=== PATIENT | male | born 1950 | race Caucasian/White ===

== ENCOUNTER → 2018-10-02 | Outpatient (CLI) | payer BC, MEDICARE | END | disposition home or self-care (01) | LOC: SHCH 11:33 | PROVIDERS: ATTEND Internal Medicine Cardiovascular Disease | DX: I10 Essential (primary) hypertension (principal) | CPT/HCPCS: 93306 ==

== ENCOUNTER 2024-08-15 07:33 | Observation (INO) | payer BC, MEDICARE ==
[2024-08-13 09:29] VITALS: BP 185/88; PULSE 68; RESP 17; TEMP 98.1
[2024-08-13 09:32] LABS: BASOPHILS # (AUTO) 0.05 K/uL (0.00-0.20); BASOPHILS % (AUTO) 0.5 % (0.0-5.0); EOSINOPHILS # (AUTO) 0.17 K/uL (0.00-0.70); EOSINOPHILS % (AUTO) 1.8 % (0.0-8.0); HEMATOCRIT 43.7 % (42-54); IMMATURE GRANULOCYTE ABSOLUTE 0.09 K/uL (0-1); LYMPHOCYTES # (AUTO) 2.2 K/uL (1.0-4.8); LYMPHOCYTES % (AUTO) 23.4 % (21.0-51.0); MEAN CORPUSCULAR HEMOGLOBIN 35.2 pg (27.0-33.0); MEAN CORPUSCULAR HGB CONC 35.7 g/dL (32.0-36.0); MEAN CORPUSCULAR VOLUME 98.6 fL (79-99); MONOCYTES # (AUTO) 0.9 K/uL (0.1-1.0); MONOCYTES % (AUTO) 9.8 % (3.0-13.0); NEUTROPHILS # (AUTO) 5.9 K/uL (1.8-7.7); NEUTROPHILS % (AUTO) 63.5 % (40.0-77.0); PLATELET COUNT (AUTO) 261 K/uL (130-400); RED BLOOD CELL COUNT(AUTO) 4.43 MIL/uL (4.50-6.20); RED CELL DISTRIBUTION WIDTH 12.4 % (11.0-15.5); WHITE BLOOD COUNT (AUTO) 9.4 K/uL (4.8-10.8)
--- NOTE | 2024-08-13 09:38 | EKG ---
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
[2024-08-13 09:41] LABS: ALBUMIN 4.1 g/dL (3.5-5.0); CREATININE 0.9 mg/dL (0.5-1.3); POTASSIUM 4.3 mmol/L (3.5-5.1)
[2024-08-13 09:42] LABS: INR 0.97 (0.85-1.15); PROTHROMBIN TIME 10.3 SEC (9.6-11.6)
[2024-08-13 09:44] LABS: PARTIAL THROMBOPLASTIN TIME 32.3 SEC (26.3-35.5)
--- NOTE | 2024-08-14 16:31 | NUR ---
Discharge Plan This CM called patient to phone #: [phone]. Left message to call CM back at [phone]. Also updated that CM will follow up with patient tomorrow after surgery.
[2024-08-15] VITALS (24 sets, daily range): BP systolic 108–183; BP diastolic 59–84; PULSE 51–83; RESP 15–20; TEMP 97.6–98.6; O2SAT 96–98
[~2024-08-15] VITALS: Ht 182.9 cm; Wt 104.3 kg
[~2024-08-15 07:33] MED LIST: AMLO-257 PO; LOSA1TAB42 PO; super beets PO
[2024-08-15] MEDS ORDERED: ROPivacaine 0.5% 5MG/ML 30ML ONE (10:05)
[2024-08-15] MEDS ORDERED: ketaMINE 50MG/ML SYRINGE 50 MG/ML DISP.SYRIN ONE (10:05)
[2024-08-15] MEDS ORDERED: LIDOCAINE PF 100MG/5ML (2%) SYRINGE 5ML ONE (10:07)
[2024-08-15] MEDS ORDERED: rocuRONium bROMide 10MG/1ML 5ML VL ONE ×2 (10:08→11:02)
[2024-08-15] MEDS ORDERED: FENTanyl CITRate PF 50 MCG/1 ML 2ML VIAL ONE (10:08)
[2024-08-15] MEDS ORDERED: proPOFol 10 MG/ML 20ML VIAL IV ONE (10:08)
[2024-08-15] MEDS: TRANEXAMIC ACID 1000MG/10ML ONE (10:35)
[2024-08-15] MEDS ORDERED: ondanSETRON 4MG INJ ONE (10:36)
[2024-08-15] MEDS ORDERED: dexaMETHasone SOD PHOSPHATE 10MG/ML 1ML VIAL ONE (10:36)
[2024-08-15] MEDS: ceFAZolin SODIUM 2 GM VIAL ONE (10:40)
[2024-08-15] MEDS ORDERED: GLYCOPYRROLATE 0.2 MG/ML 5 ML VIAL ONE (10:50)
[2024-08-15] MEDS ORDERED: NEOSTIGMINE METHYLSULFATE 1MG/ML IV ONE (10:50)
[2024-08-15] MEDS ORDERED: PoTASSium chloRIDE 20MEQ/100ML 100 ML IV PRN (11:00)
[2024-08-15] MEDS ORDERED: DiphenhydrAMINE HCL 50 MG/ML VIAL IVP PRN (11:00)
[2024-08-15] MEDS ORDERED: FERROUS FUMARATE 324 MG TABLET PO PRN (11:00)
[2024-08-15] MEDS ORDERED: PoTASSium chloRIDE 20MEQ ER 20 MEQ ERTAB PO PRN (11:00)
[2024-08-15] MEDS ORDERED: CALCIUM CARB 500MG PO PRN (11:00)
[2024-08-15] MEDS ORDERED: HYDROcodone/APAP 5/325 1 TAB TABLET PO PRN ×2 (11:00→11:30)
[2024-08-15] MEDS ORDERED: ondanSETRON 4MG INJ IVP PRN (11:00)
[2024-08-15] MEDS ORDERED: PoTASSium chl 10% ELIXIR 20MEQ 20 MEQ/15 ML UDCUP PO PRN (11:00)
[2024-08-15] MEDS: ROPivacaine 0.5% 5MG/ML 30ML ONE (11:24)
[2024-08-15] MEDS: ketOROlac 30MG VIAL (30MG/ML) ONE (11:24)
--- NOTE | 2024-08-15 13:03 | DS ---
Discharge Summary Hospital Course Summary: The patient was admitted to the hospital postoperatively on 08/15/2024 after undergoing right total knee arthroplasty. They did well with routine postoperative pain control. They worked well with physical therapy. They developed some acute blood loss anemia but remained asymptomatic. The hospital course was otherwise uncomplicated. They were subsequently able to be discharged on postoperative day [] once discharge arrangements were made with home health physical therapy. Java Developer Consultant(s): None Procedure(s): Right total knee arthroplasty, 08/15/2024 Assessment/Plan: ASSESSMENT: Status post right total knee arthroplasty Acute blood loss anemia PLAN: See discharge instructions Discharge Instructions: Begin working with home health physical therapy. Dressing may be removed 08/17/24 and left open to air. Showers ok allowing soap and water to run over the wound. Pat dry. Do not submerge wound in tub/pool. Do not apply ointments. Do not apply Betadine. Do not apply peroxide. Ice packs to decrease pain/swelling. Prescriptions have been sent to the pharmacy: *Kirwin 5/325mg 1-2 tab every 6 hours as needed for severe pain. (please call for refills) Cyclobenzaprine 5mg 1 tab every 8 hours as needed for muscle spasm pain. Gabapentin 100mg 1 tab every 8 hours (may discontinue if drowsy). Colace 100mg 1 tab orally twice a day as needed for constipation. Aspirin 325mg twice a day for 30 days to prevent blood clots. Call for a follow-up appointment in 2-3 weeks at [facility]. Home Medications: Reported Medications [super beets] No Conflict Check, 1 TAB PO DAILY 08/13/24 Losartan/Hydrochlorothiazide (Losartan-Hctz 100-12.5 mg Tab) 100 Mg-12.5 Mg Tablet, 1 TAB PO DAILY for 30 Days, #30 TAB 0 Refills 08/13/24 Amlodipine Besylate (Amlodipine Besylate) 5 Mg Tablet, 1 TAB PO AM for 30 Days, #30 TAB 0 Refills 08/13/24 JENNY BARNEY MD Aug 15, 2024 13:03
--- NOTE | 2024-08-15 13:13 | OP ---
Operative Note: DATE OF PROCEDURE: 08/15/24 PREOPERATIVE DIAGNOSIS: Right knee osteoarthritis. POSTOPERATIVE DIAGNOSIS: Right knee osteoarthritis. PROCEDURE PERFORMED: Right knee total knee arthroplasty. SURGEON: Francine Paredes MD HOUSE PARENT: Ana Lilia Hein. ANESTHESIA: General with adductor canal block. ANESTHESIA: BARK SPUDDER Angela Boudreaux. ESTIMATED BLOOD LOSS: 50cc. COMPLICATIONS: None. DRAINS: None. SPECIMENS REMOVED: resected bone. Not sent to pathology. IMPLANTS: [employer] Journey II BCS size 7 Oxinium femur, size 6 tibial base plate, 7.5 x 32 mm patella, 10 mm polyethylene STATEMENT OF MEDICAL NECESSITY: The patient is a 74-year-old male who suffers from right knee osteoarthritis failing conservative management. After discussion of the risks, benefits, and alternatives with the patient, they voluntarily agreed to undergo the aforementioned procedure. DESCRIPTION OF PROCEDURE: Patient was properly identified in the preoperative holding area. Surgical site marking was verified and surgery consent reviewed. The patient was then taken to the operating room and placed in supine position on the OR table. After induction of general anesthesia, preoperative antibiotics were given, all bony prominences were well-padded, and a well padded tourniquet was applied but not inflated at this time. The right lower extremity was then prepped and draped in usual sterile fashion. Surgical time out was done verifying correct surgery, side, site, and location to be performed. We then began the procedure by exsanguinating the limb using an Esmarch and inflating the tourniquet to 350 mmHg. At this point, we made an anterior midline incision using a 10 blade, coming down sharply the level of the fascia. Skin flaps were elevated medially and laterally. We then obtained a clean 10 blade and performed a standard medial parapatellar arthrotomy. We excised the infrapatellar fat pad. We performed our soft tissue releases off of the tibia. We transected the ACL and removed the anterior portion of the medial & lateral meniscus. We then brought the knee into hyperflexion with the patella everted. We used our entry reamer to enter the femoral canal. We then placed our intramedullary cutting guide for our distal femoral cutting block. We then performed our distal femoral osteotomy ensuring appropriate rotation and removed the bony wafer. We then removed these pins and block and then used jig 2 to size the distal femur with the after mentioned size found. We then placed our 5-in-1 cutting block in 3 degrees of external rotation and took our 5 cuts ensuring to protect the patellar tendon and the collateral ligaments. We then removed the cutting block and our bony fragments using a curved osteotome. We then placed our PCL retractor subluxating the tibia anteriorly. Using an extra medullary tibial cutting guide, we hung the block for our proximal tibial cut taking 2 mm off the more diseased portion. Prior to pinning this block in place, we ensured appropriate varus/valgus alignment and posterior slope similar to the peoria slope of the patient's knee. We then performed our proximal tibial osteotomy and removed the bony wafer using Bovie electrocautery to release any remaining soft tissue attachments. We then used our tibial sizing paddle and checked once more for varus & valgus alignment and found this to be appropriate. At this point, we pinned our tibial paddle in place. We then removed the PCL retractor and subluxated the tibia posteriorly while we placed our femoral trial component. We then finished preparing the notch with the reamer and box chisel. The notch portion of the trial femoral component was then placed. A posterior stabilized polyethylene, size 9 trial was placed. The knee was then taken through range of motion and found to have stable full range of motion. We then placed a bump under the ankle and everted the patella to perform our freehand cut of the undersurface the patella. We then sized our patella and reamed to the lug holes for this. We placed our trial patellar component and begin to take the knee through range of motion. The patella had significant lateral tracking so lateral release was performed. At this point we began removing our trial components and punched the tibial keel prior to removin g our tibial trial component. Final components were opened and cement was mixed on the back table while we injected local cocktail in the posterior capsule. We then thoroughly irrigated out the bone and dried the bony surfaces. We cemented our tibial component in place ensuring to remove excess cement and placed our trial polyethylene. We then cemented our femoral component in place once again taking time to ensure excess cement was removed leg was brought into full extension to help squeeze the excess cement from around the femoral component. We then brought the knee back in a flexion to remove this portion of the cement at this point we placed the ankle in a bump thoroughly irrigated off the patellar component and cemented our patellar component in standard fashion again removing excess cement. While we waited for the cement to cure, we thoroughly irrigated out the wound with normal saline. Once our cement had cured, we took the knee through a range of motion and found full and stable range of motion. We then elected to use the size 10 polyethylene and removed our trial polyethylene. We impacted our final polyethylene component in place in standard fashion and took the knee through a range of motion check once more. This was satisfactory so we began to repair the arthrotomy using #1 Vicryl in interrupted [id number] fashion. Subcutaneous tissue was repaired using 2-0 Vicryl. Running subcuticular 3-0 Monocryl stitch with Dermabond placed over this for the skin. We then applied a foam barrier dressing and a pressure dressing consisting of 4 x 4's fluffs and an Jerry wrap. The tourniquet was then deflated. Patient was awakened from anesthesia, and they were taken to the recovery room in stable condition. FRANCINE PAREDES MD Aug 15, 2024 13:13
[2024-08-15] MEDS: FENTanyl CITRate PF 50 MCG/1 ML 2ML VIAL ONE ×2 (13:15→13:28)
[2024-08-15] MEDS: ketOROlac 15MG/ML VIAL (15MG/ML) IV SCH (13:33)
[2024-08-15] MEDS: ketOROlac 15MG/ML VIAL (15MG/ML) ONE (13:34)
--- NOTE | 2024-08-15 13:45 | HMCIMG ---
KNEE/PATELLA 1-2VWS RT HISTORY: Post right total knee arthroplasty COMPARISON: None TECHNIQUE: 2 images of right knee were obtained. FINDINGS: Portable right knee arthroplasty changes are seen. Postoperative changes are seen. Cutaneous emphysema is There is no acute displaced fracture or dislocation. Degenerative changes are seen. IMPRESSION: 1. Findings as described above.
[2024-08-15] MEDS: GABApentin 100 MG CAPSULE PO SCH (14:40)
[2024-08-15] MEDS: traMADol HCL 50 MG TABLET ONE (14:41)
[2024-08-15] MEDS: traMADol HCL 50 MG TABLET PO PRN (14:41)
[2024-08-15] MEDS: GABApentin 100 MG CAPSULE ONE ×2 (14:41→16:47)
[2024-08-15] MEDS ORDERED: ceFAZolin SODIUM 2 GM VIAL IVP SCH (16:00)
[2024-08-15] MEDS: LACTATED RINGERS 1000ML 1,000 ML IV ONE (16:25)
--- NOTE | 2024-08-15 16:25 | NUR ---
PATIENT ARRIVED ON UNIT VIA STRETCHER. NO PAIN OR DISTRESS NOTED OR VOICED. WILL CONTINUE TO MONITOR.
[2024-08-15] MEDS: acetaMINOPHEN 100 ML ONE (16:46)
[2024-08-15] MEDS: FAMOTIDINE 20MG VIAL IV ONE (16:47)
[2024-08-15] MEDS: 0.9%NACL 1000ML 1,000 ML IV SCH (17:15)
[2024-08-15] MEDS: ceFAZolin SODIUM 2 GM VIAL IVP SCH (18:40)
[2024-08-15] MEDS: doCUSate SODIUM 100 MG CAP PO SCH (21:00)
[2024-08-16] VITALS: BP 162/81; PULSE 63; RESP 20; TEMP 98.3
[2024-08-16 04:03] LABS: HEMATOCRIT 36.1 % (42-54); MEAN CORPUSCULAR HEMOGLOBIN 34.8 pg (27.0-33.0); MEAN CORPUSCULAR HGB CONC 34.1 g/dL (32.0-36.0); MEAN CORPUSCULAR VOLUME 102.3 fL (79-99); RED BLOOD CELL COUNT(AUTO) 3.53 MIL/uL (4.50-6.20); RED CELL DISTRIBUTION WIDTH 12.6 % (11.0-15.5); WHITE BLOOD COUNT (AUTO) 17.5 K/uL (4.8-10.8)
[2024-08-16 04:14] LABS: CREATININE 1.3 mg/dL (0.5-1.3); POTASSIUM 4.3 mmol/L (3.5-5.1)
[2024-08-16 05:53] VITALS: BP 156/74; PULSE 62; RESP 18; TEMP 98.7
[2024-08-16 08:00] VITALS: BP 150/87; PULSE 76; RESP 18; TEMP 98.5; O2SAT 97
--- NOTE | 2024-08-16 08:07 | PN ---
Ortho postop day one. This morning the patient is awake alert and oriented he is in bed and I have asked him to try to spend the majority of the day out of bed. Reporting adequate pain control. Vital signs have been stable. Afebrile. He is voiding on his own. He is yet to pass gas. Laboratory results reviewed. Noted to have a drop in hemoglobin and hematocrit as expected after total knee arthroplasty patient is currently asymptomatic. Operative findings discussed with the patient. The dressing is intact. Jerry bandage removed Ice is present to operative extremity. Gastrocnemius a soft nontender. Negative Homans. Bilateral SCD sleeves present. Ambulated with therapy yesterday and is pending further physical therapy. Anticipated discharge goal is HH/PT. Assessment: Status post right total knee arthroplasty. Asymptomatic acute postoperative blood loss anemia. Plan: Continue with Dr. Paredes's total knee arthroplasty protocol and discharge planning. Asymptomatic acute postoperative blood loss anemia addressed with the protocol as necessary. Vitals/Labs Vital Signs Date Time Temp Pulse Resp B/P (MAP) Pulse Ox O2 Delivery O2 Flow Rate FiO2 08/16/24 05:53 98.8 62 18 156/74 97 Room Air 0.0 08/15/24 21:05 21 Laboratory Tests 08/16/24 03:41 Medications Current Medications Cefazolin Sodium 2 gm STK-MED ONCE .ROUTE Last administered on 08/15/24at 10:40; Start 08/15/24 at 07:58; Stop 08/15/24 at 07:58; Status DC Lactated Ringer's 1,000 ml @ As Directed STK-MED ONCE IV; Start 08/15/24 at 07:58; Stop 08/15/24 at 07:58; Status DC Tranexamic Acid 1,000 mg STK-MED ONCE .ROUTE Last administered on 08/15/24at 10:35; Start 08/15/24 at 09:48; Stop 08/15/24 at 09:48; Status DC Ketorolac Tromethamine 30 mg STK-MED ONCE .ROUTE Last administered on 08/15/24at 11:24; Start 08/15/24 at 09:48; Stop 08/15/24 at 09:48; Status DC Ropivacaine 150 mg STK-MED ONCE .ROUTE Last administered on 08/15/24at 11:24; Start 08/15/24 at 09:49; Stop 08/15/24 at 09:49; Status DC Gabapentin 100 mg STK-MED ONCE .ROUTE; Start 08/15/24 at 09:56; Stop 08/15/24 at 09:56; Status DC Acetaminophen 100 ml @ As Directed STK-MED ONCE .ROUTE; Start 08/15/24 at 09:56; Stop 08/15/24 at 09:56; Status DC Famotidine 20 mg STK-MED ONCE IV; Start 08/15/24 at 09:56; Stop 08/15/24 at 09:57; Status DC Ropivacaine 150 mg STK-MED ONCE .ROUTE; Start 08/15/24 at 10:05; Stop 08/15/24 at 10:05; Status DC Ketamine HCl 50 mg STK-MED ONCE .ROUTE; Start 08/15/24 at 10:05; Stop 08/15/24 at 10:05; Status DC Lidocaine HCl 100 mg STK-MED ONCE .ROUTE; Start 08/15/24 at 10:07; Stop 08/15/24 at 10:08; Status DC Propofol 200 mg STK-MED ONCE IV; Start 08/15/24 at 10:08; Stop 08/15/24 at 10:08; Status DC Rocuronium [place] 50 mg STK-MED ONCE .ROUTE; Start 08/15/24 at 10:08; Stop 08/15/24 at 10:08; Status DC Fentanyl Citrate 100 mcg STK-MED ONCE .ROUTE; Start 08/15/24 at 10:08; Stop 08/15/24 at 10:09; Status DC Ondansetron HCl 4 mg STK-MED ONCE .ROUTE; Start 08/15/24 at 10:36; Stop 08/15/24 at 10:36; Status DC Dexamethasone Sodium Phosphate 10 mg STK-MED ONCE .ROUTE; Start 08/15/24 at 10:36; Stop 08/15/24 at 10:36; Status DC Glycopyrrolate 1 mg STK-MED ONCE .ROUTE; Start 08/15/24 at 10:50; Stop 08/15/24 at 10:50; Status DC Neostigmine Methylsulfate 10 mg STK-MED ONCE IV; Start 08/15/24 at 10:50; Stop 08/15/24 at 10:50; Status DC Sodium Chloride 1,000 ml @ 100 mls/hr Q10H IV Last administered on 08/16/24at 02:44; Start 08/15/24 at 11:00; Stop 08/16/24 at 10:59 Polyethylene Glycol 17 gm DAILY PO; Start 08/16/24 at 09:00; Stop 09/15/24 at 08:59 Bisacodyl 10 mg DAILY PRN RC; Start 08/18/24 at 11:00; Stop 09/17/24 at 10:59 Ketorolac Tromethamine 15 mg Q6H PRN IV; Start 08/16/24 at 11:00; Stop 08/21/24 at 10:59 Ferrous Fumarate 324 mg DAILY PRN PO; Start 08/15/24 at 11:00; Stop 09/14/24 at 10:59 Ondansetron HCl 4 mg Q6H PRN IVP; Start 08/15/24 at 11:00; Stop 09/14/24 at 10:59 Calcium Carbonate 500 mg Q12H PRN PO; Start 08/15/24 at 11:00; Stop 09/14/24 at 10:59 Diphenhydramine HCl 25 mg Q6H PRN IVP; Start 08/15/24 at 11:00; Stop 09/14/24 at 10:59 Cefazolin Sodium 2 gm Q8H IVP; Start 08/15/24 at 16:00; Stop 08/15/24 at 16:50; Status DC Cyclobenzaprine HCl 5 mg Q8H PRN PO; Start 08/15/24 at 11:00; Stop 09/14/24 at 10:59 Gabapentin 100 mg TID PO Last administered on 08/15/24at 21:00; Start 08/15/24 at 14:00; Stop 09/14/24 at 13:59 Aspirin 325 mg DAILY PO; Start 08/16/24 at 09:00; Stop 09/15/24 at 08:59 Ketorolac Tromethamine 15 mg Q8H IV Last administered on 08/16/24at 02:38; Start 08/15/24 at 11:00; Stop 08/16/24 at 03:01; Status DC Docusate Sodium 100 mg BID PO Last administered on 08/15/24at 21:00; Start 08/15/24 at 21:00; Stop 09/14/24 at 20:59 Potassium Chloride 100 ml @ 100 mls/hr AD PRN IV; Start 08/15/24 at 11:00; Stop 09/14/24 at 10:59 Potassium Chloride 20 meq AD PRN PO; Start 08/15/24 at 11:00; Stop 09/14/24 at 10:59 Potassium Chloride 20 meq AD PRN PO; Start 08/15/24 at 11:00; Stop 09/14/24 at 10:59 Tramadol HCl 50 mg Q6H PRN PO Last administered on 08/15/24at 21:04; Start 08/15/24 at 11:00; Stop 08/20/24 at 10:59 Acetaminophen/ Hydrocodone Bitart Q4H PRN PO; Start 08/15/24 at 11:00; Stop 08/15/24 at 11:11; Status DC Amlodipine Besylate 5 mg AM PO; Start 08/16/24 at 09:00; Stop 09/15/24 at 08:59 Miscellaneous Medication 1 tab DAILY PO; Start 08/16/24 at 09:00; Stop 08/15/24 at 11:10; Status DC Home Med ([super beets] 1 TAB) DAILY PO; Start 08/16/24 at 09:00; Stop 09/15/24 at 08:59 Rocuronium [place] 50 mg STK-MED ONCE .ROUTE; Start 08/15/24 at 11:02; Stop 08/15/24 at 11:03; Status DC Losartan Potassium 100 mg DAILY PO; Start 08/16/24 at 09:00; Stop 09/15/24 at 08:59 Hydrochlorothiazide 12.5 mg DAILY PO; Start 08/16/24 at 09:00; Stop 09/15/24 at 08:59 Acetaminophen/ Hydrocodone Bitart 1 tab Q4H PRN PO; Start 08/15/24 at 11:30; Stop 08/20/24 at 11:29 Acetaminophen/ Hydrocodone Bitart 2 tab Q4H PRN PO; Start 08/15/24 at 11:30; Stop 08/20/24 at 11:29 Fentanyl Citrate 100 mcg STK-MED ONCE .ROUTE Last administered on 08/15/24at 13:15; Start 08/15/24 at 13:10; Stop 08/15/24 at 13:10; Status DC Fentanyl Citrate 100 mcg STK-MED ONCE .ROUTE Last administered on 08/15/24at 13:28; Start 08/15/24 at 13:24; Stop 08/15/24 at 13:24; Status DC Ketorolac Tromethamine 15 mg STK-MED ONCE .ROUTE; Start 08/15/24 at 13:31; Stop 08/15/24 at 13:32; Status DC Tramadol HCl 50 mg STK-MED ONCE .ROUTE; Start 08/15/24 at 14:37; Stop 08/15/24 at 14:38; Status DC Gabapentin 100 mg STK-MED ONCE .ROUTE; Start 08/15/24 at 14:38; Stop 08/15/24 at 14:38; Status DC Cefazolin Sodium 2 gm Q8H IVP Last administered on 08/16/24at 02:37; Start 08/15/24 at 18:30; Stop 08/16/24 at 02:31; Status DC DARYL NARVAEZ NP Aug 16, 2024 08:07
[2024-08-16] MEDS ORDERED: NON-FORMULARY MEDICATION 1 EACH (Losartan/Hydrochlorothiazide (Losartan-Hctz 100-12.5 mg T PO SCH (09:00)
[2024-08-16] MEDS: ASPIRIN 325MG EC TAB PO SCH (09:51)
[2024-08-16] MEDS: polyETHYLene GLYCol 3350 17 GM POWD.PACK PO SCH (09:52)
[2024-08-16] MEDS: amLODIPine 5 MG TAB PO SCH (09:53)
[2024-08-16] MEDS: LoSARTan 100 MG TABLET PO SCH (09:54)
[2024-08-16] MEDS: hydroCHLOROthiazide 25 MG TABLET PO SCH (09:54)
[2024-08-16] MEDS ORDERED: ketOROlac 15MG/ML VIAL (15MG/ML) IV PRN (11:00)
--- NOTE | 2024-08-16 11:45 | NUR ---
MNP CM MET WITH PT THIS MORNING, INITIAL ASSESSMENT DONE. PATIENT IS INDEPENDENT PRIOR TO SURGERY, LIVES AT HOME ALONE HAS FRIENDS NEARBY, BROTHER LIVES IN [place]. DENIES ANY OTHER EQUIPMENT/SERVICES. FEELS SAFE TO GO BACK HOME, STILL WORK AND DRIVE, ARRANGES OWN NEEDS, BROTHER ABLE TO ASSIST WITH TRANSPORTATION NECESSARY. DISCUSSED MD RECOMMENDATIONS FOR HOME W/HH FOR PT AND DME PT WILL NEED STANDARD WALKER ON WHEELS, PT AGREEABLE, CONSENT SIGNED [facility] FOR [facility] IN NETWORK HH AND ANY IN NETWORK DME. DCP HOME W/HH ONCE HH AND DME APPROVED. CM TO CONTINUE TO FOLLOW UP. Addendum: 08/16/24 at 1147 by DEXTER PALOMARES LVN Amended: Links added.
[2024-08-16 12:00] VITALS: BP 143/73; PULSE 73; RESP 18; TEMP 98.4
[2024-08-16 16:00] VITALS: BP 176/89; PULSE 84; RESP 18; TEMP 100.1
[2024-08-16] MEDS: CYCLOBENZAPRINE HCL 10 MG TABLET PO PRN (16:01)
[2024-08-16] MEDS: HYDROcodone/APAP 5/325 1 TAB TABLET PO PRN (16:02)
[2024-08-16] MEDS ORDERED: CYCL-309 PO (16:44)
[2024-08-16] MEDS ORDERED: DOCU-116 PO (16:44)
[2024-08-16] MEDS ORDERED: GABA100C PO (16:44)
[2024-08-16] MEDS ORDERED: HYDR-4060 PO (16:44)
[2024-08-16] MEDS ORDERED: ASPI-891 PO (16:44)
--- NOTE | 2024-08-16 17:00 | NUR ---
DISCHARGE DISCHARGE ORDERS OBTAINED FOR PATIENT TO BE DISCHARGED HOME OBTAINED. DISCHARGE INSTRUCTIONS AND DOCUMENTATION GIVEN TO PATIENT AT BEDSIDE. PATIENT VOICED UNDERSTANDING. IV DISCONTINUED BY SILVANO DUMONT, CATHETER INTACT, NO S/S OF INFECTION NOTED TO SITE. PATIENT TOLERATED WELL. BANDS REMOVED. PENDING TRANSPORTATION. Addendum: 08/16/24 at 1836 by ZEYAD NARVAEZ LVN LVN WRONG PATIENT
--- NOTE | 2024-08-16 17:02 | NUR ---
SHOWER EDUCATED PATIENT ON IMPORTANCE OF HYGIENE TO PREVENT INFECTION. PATIENT STATED HE WANTS TO SHOWER WHEN HE GETS HOME. REFUSED SHOWER. CHARGE NURSE NOTIFIED.
--- NOTE | 2024-08-16 18:00 | NUR ---
DISCHARGE PATIENT LEFT VIA WHEELCHAIR, ACCOMPANIED BY FRIEND. NO S/S OF DISTRESS NOTED. Addendum: 08/16/24 at 1836 by ZEYAD NARVAEZ LVN LVN INCORRECT PATIENT
--- NOTE | 2024-08-16 18:12 | NUR ---
NOTE PATIENT DISCHARGE EDUCATION GIVEN. IV CATHETER REMOVED AN INTACT. NO SIGNS OR SYMPTOMS OF INFECTION PRESENT. BANDS REMOVED. PT WENT DOWN VIA WHEELCHAIR TO PRIVATE CAR. NO DISTRESS NOTED.
[2024-08-18] MEDS ORDERED: BisaCODYL 10 MG SUPP.RECT RC PRN (11:00)
== END 2024-08-16 18:10 | disposition home or self-care (01) ==
LOC: DAH 07:33 → DAHIP 07:34 → DAH 07:34 → 4AH 16:25
PROVIDERS: ADMIT Student in an Organized Health Care Education/Training Program; ATTEND Student in an Organized Health Care Education/Training Program
DX: M17.11 Unilateral primary osteoarthritis, right knee (principal); G89.18 Other acute postprocedural pain; D62 Acute posthemorrhagic anemia; Z79.899 Other long term (current) drug therapy
CPT/HCPCS: 82040; 80048 ×2; 85025; 85610; 85730; 84134; 86140; 36415 ×2; 93005; 87641; 27447; 96376 ×2; 96365; 96375; 64447; 73560; 97161; 97116 ×3; 97530 ×4; 96366; 85027; G0378 ×31; A4663; A4649 ×2; J7120; J3490 ×6; J3010 ×3; J1100; J2003; J2704; J2405; J1885 ×4; J2710; J2795 ×2; J0690 ×3; C1713 ×2; C1776 ×2; A4930 ×2; A6255; A5120; A4215; A4223 ×2; A4213; A4222; A4221; A4216

== ENCOUNTER 2024-10-15 05:42 | Day surgery (SDC) | payer BC, MEDICARE ==
--- NOTE | 2024-10-11 11:58 | EKG ---
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
[2024-10-11 12:01] LABS: IMMATURE GRANULOCYTE ABSOLUTE 0.05 K/uL (0-1); NUCLEATED RED BLOOD CELLS 0.0 % (0.0-0.19); PLATELET COUNT (AUTO) 334 K/uL (130-400); RED BLOOD CELL COUNT(AUTO) 3.68 MIL/uL (4.50-6.20); RED CELL DISTRIBUTION WIDTH 13.7 % (11.0-15.5); WHITE BLOOD COUNT (AUTO) 9.0 K/uL (4.8-10.8)
[2024-10-11 12:08] LABS: CREATININE 1.2 mg/dL (0.5-1.3); GLOMERULAR FILTR. RATE CALC 64.0 mL/min (>90); GLUCOSE,RANDOM 125.0 mg/dL (70-105); SODIUM SERUM 143.0 mmol/L (136-145); UREA NITROGEN, BLOOD 11.0 mg/dL (7-18)
[2024-10-11 12:10] LABS: INR 1.01 (0.85-1.15)
[2024-10-11 12:52] VITALS: BP 134/68; PULSE 84; RESP 17; TEMP 98.3
[2024-10-15] VITALS (16 sets, daily range): BP systolic 135–175; BP diastolic 52–94; PULSE 66–79; RESP 15–19; TEMP 97.4–98
[~2024-10-15] VITALS: Ht 182.9 cm; Wt 94.8 kg
[2024-10-15] MEDS ORDERED: LACTATED RINGERS 1000ML 1,000 ML IV ONE (06:12)
[2024-10-15] MEDS ORDERED: GABAPENTIN 300 MG CAPSULE ONE (06:30)
[2024-10-15] MEDS ORDERED: LIDOCAINE PF 100MG/5ML (2%) SYRINGE 5ML ONE (06:47)
[2024-10-15] MEDS ORDERED: SUGAMMADEX SODIUM 200 MG/2 ML VIAL IV ONE (07:08)
[2024-10-15] MEDS ORDERED: INDO-15 PO (08:49)
[2024-10-15] MEDS ORDERED: ACET-2079 PO (08:49)
--- NOTE | 2024-10-15 10:30 | NUR ---
Crutch training provided pt able to return demonstration with proper/safe technique
--- NOTE | 2024-10-15 10:51 | NUR ---
Full and complete discharge instructions given to Patient and Family both verbally and in writing. Explained Surgical procedure precautions and follow up. Right Knee incision sites clean dry and intact. Neurovascularly intact. No evidence of bleeding, bruising or hematoma. Crutch training provided by PT. All questions answered. PIV removed with catheter tip intact. Friend at bedside appearing supportive. W/C to POV with Friend to home
--- NOTE | 2024-10-15 11:47 | OP ---
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 Six weeks postoperatively the patient lacked more than 90 of flexion and approximately 10 of extension. I discussed with the patient that he needs to be much more diligent in his physical therapy in the his range motion is very poor. We discussed concerns for need for manipulation under anesthesia and the patient expressed a desire to go ahead and proceed with this. We discussed the risks, benefits, and alternatives to undergoing manipulation under anesthesia and arthroscopy with limited synovectomy in the right knee in the patient vo luntarily agreed to undergo the aforementioned procedures. DESCRIPTION OF PROCEDURE: Patient was properly identified in the preoperative holding area. Surgical site marking was verified and surgery consent reviewed. The patient was then taken to the operating room and placed in supine position on the OR table. After induction of general anesthesia, all bony prominences were well-padded. Surgical timeout was done verifying correct surgery, side, site, and location to be performed. We then began the right knee manipulation under anesthesia. First we addressed the lack of full extension by placing a bump under the calf and applying posteriorly directed pressure over the knee on the more distal end. There was no palpable scar tissue release with the soft tissue did appear to stretch mildly with us. We then began to work on flexion by bending the knee up and working on applying a flexion type force across the lower leg using the ankle. There were audible and palpable scar tissue releases with this movement in significant improvement in flexion to approximately 115 . We then made further attempts at improving extension, again with no palpable scar tissue release. AP and lateral fluoroscopic shots were obtained to ensure no periprosthetic fracture had occurred. We then moved onto the operative portion of the this procedure. Preoperative antibiotics were given and a well padded tourniquet was applied but not inflated at this time. The right lower extremity was then prepped and draped in usual sterile fashion. We exsanguinated the limb using an Esmarch and inflated the tourniquet to 250 mm Hg. We then began the procedure by making a standard anterolateral portal with an 11 blade and inserted our arthroscope through here. We made our anterior medial portal under direct visualization using spinal needle for localization. We then inserted our shaver device and performed a limited synovectomy along the anterior aspect of the joint as well as in the suprapatellar pouch. We further debrided the synovium at any hypertrophic portions within the notch and the gutters. Once we were happy with our debridement, we then thoroughly irrigated out the wound with normal saline. We removed as much fluid from the knee as possible. We then injected local anesthetic within the capsule of the joint as well as around the portal sites. Our portal sites were then repaired using 3-0 nylon in simple fashion. Sterile dressing was then applied consisting of Xeroform, 4 x 4's, ABD, cast padding, and an Jerry wrap. The patient was then awakened from anesthesia and taken to recovery room in stable condition. JENNY BARNEY MD Oct 15, 2024 11:47
--- NOTE | 2024-10-18 09:44 | HMCIMG ---
Intraoperative fluoroscopic assessment of the right knee arthroplasty INDICATION: Patient is here for manipulation. COMPARISON: None available Fluoroscopy time: 4.5 seconds. FINDINGS: 4 images demonstrate right knee arthroplasty which appears to be in anatomical position. IMPRESSION: Details of the finding in the procedure note
== END 2024-10-15 10:40 | disposition home or self-care (01) ==
LOC: DAH 05:42
PROVIDERS: ATTEND Student in an Organized Health Care Education/Training Program
DX: M24.661 Ankylosis, right knee (principal); T84.82XA Fibrosis due to internal orthopedic prosthetic devices, implants and grafts, initial encounter; Z96.651 Presence of right artificial knee joint; Z47.1 Aftercare following joint replacement surgery; I10 Essential (primary) hypertension; M19.90 Unspecified osteoarthritis, unspecified site; F17.200 Nicotine dependence, unspecified, uncomplicated; Z79.01 Long term (current) use of anticoagulants; Z79.899 Other long term (current) drug therapy; Y83.8 Other surgical procedures as the cause of abnormal reaction of the patient, or of later complication, without mention of misadventure at the time of the procedure
CPT/HCPCS: 80048; 85025; 85610; 85730; 36415; 93005; 29875; 27570; 73564; A4663; A4649 ×2; J7120; J3010 ×2; J1100; J0665 ×2; J3490; J2003; J0360; J2704; J2405; J0690 ×2; A6223; A5120; A4215; A4213; A4222; A4221; A4216; A6450; A4223 ×2